=== PATIENT | male | born 1985 | race Caucasian/White ===

== ENCOUNTER 2021-06-04 07:11 | Inpatient (IN) ==
[2021-06-04] MEDS ORDERED: *HR* LORazepam 1 MG TABLET PO ONE ×2 (08:06→13:18)
[2021-06-04 08:51] LABS: Basophils # 0.1 K/mcL (0.0-0.2); Basophils % 0.6 %; Eosinophils # 0.1 K/mcL (0.0-0.6); Eosinophils % 0.9 %; Hemoglobin 15.3 g/dL (12.9-16.9); Immature Granulocytes % 0.2 % (0-4); Lymphocytes # 1.6 K/mcL (0.6-4.6); Lymphocytes % 18.9 %; Mean Corpuscular Hemoglobin 30.7 pg (28.0-33.3); Mean Corpuscular Volume 90.2 fL (83.0-100.0); Mean Platelet Volume 10.9 fL (9.4-12.4); Monocytes # 0.6 K/mcL (0.0-1.3); Monocytes % 6.7 %; Platelet Count 287 K/mcL (140-400); Red Blood Count 4.99 M/mcL (4.19-5.50); Red Cell Distribution Width 11.8 % (11.5-14.5); Segmented Neutrophils % 72.7 %; White Blood Count 8.2 K/mcL (4.3-11.1)
[2021-06-04 08:56] LABS: Bilirubin,Urine Negative (Negative); Blood,Urine Negative (Negative); Clarity,Urine Clear (Clear); Color,Urine Yellow (Yellow); Glucose,Urine (UA) Normal (Normal); Ketones,Urine Negative (Negative); Leukocyte Esterase,Urine Negative (Negative); Nitrite,Urine Negative (Negative); Protein,Urine 30 mg/dL (Neg-Trace); Specific Gravity,Urine 1.025 (1.010-1.025); Urobilinogen,Urine Normal (Normal)
[2021-06-04 09:06] LABS: Mucus,Urine Few per lpf (None-Few); RBC,Urine 0-3 per hpf (0-3); Squamous Epithelial Cell,Urine Few per hpf (None-Few); WBC,Urine 0-3 per hpf (0-3)
[2021-06-04 10:15] LABS: Amphetamine Screen,Urine Negative ng/mL (Cutoff=1000); Barbiturate Screen,Urine Negative ng/mL (Cutoff=200); Benzodiazepines Screen,Urine Negative ng/mL (Cutoff=200); Cannabinoid Screen,Urine Negative ng/mL (Cutoff = 50); Cocaine Screen,Urine Negative ng/mL (Cutoff= 300); Opiate Screen,Urine Negative ng/mL (Cutoff=300); Phencyclidine Screen,Urine Negative ng/mL (Cutoff=25)
[2021-06-04 10:15] LABS: Acetaminophen < 10 mcg/mL (10-20); BUN/Creatinine Ratio 14 (6-26); Blood Urea Nitrogen 15 mg/dL (6-20); Calcium 9.3 mg/dL (8.6-10.3); Carbon Dioxide 21 mEq/L (23-29); Chloride 106 mEq/L (98-107); Ethanol < 10 mg/dL (Less than 10); Glucose 111 mg/dL (70-105); Osmolality,Calculated 286 (280-300); Potassium 3.7 mEq/L (3.5-5.1); Salicylate < 2.5 mg/dL (15.0-30.0); Sodium 137 mEq/L (136-145); eGFR For African Americans > 60 (> 60); eGFR For Non-African Americans > 60 (> 60)
[2021-06-04 10:36] LABS: Troponin I < 0.03 ng/mL (< 0.04)
[2021-06-04 13:51] LABS: Adenovirus Not Detected (Not Detect); Bordetella Pertussis Not Detected (Not Detect); Chlamydophila pneumoniae Not Detected (Not Detect); Coronavirus 229E Not Detected (Not Detect); Coronavirus HKU1 Not Detected (Not Detect); Coronavirus NL63 Not Detected (Not Detect); Coronavirus OC43 Not Detected (Not Detect); Human Metapneumovirus Not Detected (Not Detect); Human Rhinovirus/Enterovirus Not Detected (Not Detect); Influenza A Subtype 2009 H1 Not Detected (Not Detect); Influenza B Not Detected (Not Detect); Mycoplasma pneumoniae Not Detected (Not Detect); Parainfluenza Virus 1 Not Detected (Not Detect); Parainfluenza Virus 2 Not Detected (Not Detect); Parainfluenza Virus 3 Not Detected (Not Detect); Parainfluenza Virus 4 Not Detected (Not Detect); Respiratory Syncytial Virus Not Detected (Not Detect); SARS-CoV-2 Not Detected (Not Detect)
[2021-06-04] MEDS ORDERED: Haloperidol Lactate 5 MG/ML VIAL IM PRN (14:22)
[2021-06-04] MEDS ORDERED: traZODone 50 MG TABLET PO PRN (14:22)
[2021-06-04] MEDS ORDERED: Acetaminophen 325 MG TABLET PO PRN (14:22)
[2021-06-04] MEDS ORDERED: *HR* LORazepam 1 MG TABLET PO PRN (14:22)
[2021-06-04] MEDS ORDERED: hydrOXYzine pamoate 25 MG CAPSULE PO PRN (14:22)
[2021-06-04] MEDS ORDERED: *HR* LORazepam 2 MG/ML VIAL IM PRN (14:22)
[2021-06-04] MEDS ORDERED: haloperidoL 5 MG TABLET PO PRN (14:22)
[2021-06-05] MEDS ORDERED: Mag Hydrox/Al Hydrox/Simeth 30 ML UDC PO PRN (08:34)
[2021-06-05] MEDS ORDERED: MOM Conc 10 ML UD.LIQ PO PRN (08:34)
[2021-06-05] MEDS: Nicotine 2 MG GUM BC PRN ×3 (10:51→20:41)
[2021-06-05] MEDS: amLODIPine 5 MG TABLET PO SCH (10:51)
[2021-06-05] MEDS ORDERED: clonazePAM 1 MG TABLET PO SCH (21:00)
[2021-06-06] MEDS ORDERED: clonazePAM 1 MG TABLET PO PRN (09:00)
[2021-06-06] MEDS ORDERED: clonazePAM 1 MG TABLET PO SCH (09:00)
[2021-06-06] MEDS: amLODIPine 5 MG TABLET PO SCH (09:01)
[2021-06-06 09:07] VITALS: BP 143/102; PULSE 75; TEMP 97.9; O2SAT 97
== END 2021-06-06 09:20 | disposition home or self-care (01) | DRG 885 ==
LOC: EMEROOARM 07:11 → 1ANU 14:10
PROVIDERS: ADMIT Psychiatry & Neurology Psychiatry; ATTEND Psychiatry & Neurology Psychiatry